=== PATIENT | female | born 1975 | race Caucasian/White ===

== ENCOUNTER 2019-05-30 16:16 | Emergency (ER) | payer MEDICARE, MEDICAID ==
--- NOTE | 2019-05-30 16:42 | EDM.PDOC ---
ED HPI GENERAL MEDICAL PROBLEM - General Chief Complaint: Drug or Alcohol Abuse Stated Complaint: [facility]IA [facility] Time Seen by Provider: 05/30/19 16:17 Source of Information: Reports: Patient, RN Notes Reviewed History Limitations: Reports: No Limitations - History of Present Illness INITIAL COMMENTS - FREE TEXT/NARRATIVE: 43-year-old female presents emergency department today via EMS services. She was found at the [facility] bathroom she had taken a couple cans of air duster and was huffing found unconscious by a customer. EMS services were called transported to the ED for further evaluation. At this time she denies any suicidal ideation states she was just trying to get high. Did contact poison control recommended symptomatic treatment as needed observation and then discharged to homeif his lab work required - Related Data Allergies Allergy/AdvReac Type Severity Reaction Status Date / Time doxycycline Allergy Anaphylactic Verified 05/30/19 16:39 Shock prochlorperazine Allergy Irritabilit Verified 05/30/19 16:39 [From Compazine] y Home Meds: Home Meds . [Unable to Verify Home Med List] 05/30/19 [History] Past Medical History Psychiatric History: Reports: Addiction Social & Family History - Tobacco Use Smoking Status *Q: Current Every Day Smoker ED ROS GENERAL - Review of Systems Review Of Systems: See Below Constitutional: Reports: No Symptoms HEENT: Reports: No Symptoms Respiratory: Reports: No Symptoms Cardiovascular: Reports: No Symptoms GI/Abdominal: Reports: No Symptoms Psychiatric: Reports: Cravings ED EXAM, GENERAL - Physical Exam Exam: See Below Exam Limited By: No Limitations General Appearance: Alert, WD/WN, No Apparent Distress Respiratory/Chest: No Respiratory Distress, Lungs Clear, Normal Breath Sounds, No Accessory Muscle Use, Chest Non-Tender Cardiovascular: Regular Rate, Rhythm, No Murmur Course - Vital Signs Last Recorded V/S: Last Vital Signs Temp 98.1 F 05/30/19 16:37 Pulse 113 H 05/30/19 16:37 Resp 26 H 05/30/19 16:37 BP 149/106 H 05/30/19 16:37 Pulse Ox 95 05/30/19 16:37 - Orders/Labs/Meds Labs: Laboratory Tests 05/30/19 Range/Units 16:17 Puncture Site Rt radial ABG pH 7.462 H (7.350-7.450) ABG pCO2 29.9 L (35.0-42.0) mmHg ABG pO2 150.0 H (75.0-100.0) mmHg ABG HCO3 21.1 L (22.0-26.0) mmol/L ABG Total CO2 18.4 L (21.0-25.0) mmol/L ABG O2 Saturation 98.0 (95.0-98.0) % ABG O2 Content 18.8 (15.0-23.0) %vol ABG Base Excess -1.2 mm/L ABG Hemoglobin 13.9 (12.0-16.0) g/dL ABG Oxyhemoglobin 95.0 % ABG Carboxyhemoglobin 1.5 (0.0-1.6) % ABG Methemoglobin 1.6 % Augustine Test Passed O2 Delivery Device Room air Departure - Departure Time of Disposition: 17:16 Disposition: Home, Self-Care 01 Condition: Poor Clinical Impression: Huffing - Discharge Information Referrals: PCP,None [Primary Care Provider] - Forms: ED Department Discharge Additional Instructions: recommend refraining from huffing, please follow-up with your primary care further help - Assessment/Plan Plan: Assessment Acuity = acute Site and laterality = huffing, air duster Etiology = [addiction Manifestations =none Location of injury = Home Lab values = ABG reveals pH 7.42 PCO2 29.60-150 bicarbonate 21.1 Plan observe for an hour in the emergency department no change in vital signs or monitoring noted discharged home This note was dictated using [employer] voice recognition software please call with any questions on syntax or grammar.
== END 2019-05-30 17:22 | disposition home or self-care (01) ==
LOC: JP.ED 16:16
DX: F18.20 Inhalant dependence, uncomplicated (principal); F17.200 Nicotine dependence, unspecified, uncomplicated; Z88.8 Allergy status to other drugs, medicaments and biological substances
CPT/HCPCS: 36600; 82803; 99284